=== PATIENT | male | born 1990 | race Hispanic/Latino ===

== ENCOUNTER → 2024-12-02 08:25 | Outpatient (REF) | payer OTHER, SELFPAY ==
[2024-12-02 09:24] LABS: Hematocrit 48.4 % (39.0-52.0); Hemoglobin 16.9 g/dL (13.0-18.0); Mean Corp Hgb Conc. 34.9 g/dL (33.0-37.0); Mean Corpuscular Hgb 29.6 pg (27.0-31.0); Mean Corpuscular Volume 84.8 fL (80.0-94.0); Mean Platelet Volume 12.2 fL (7.4-10.4); Platelet Count 194 10^3/uL (130-400); Red Blood Cell Count 5.71 10^6/uL (4.70-6.10); Red Cell Dist. Width 12.6 % (11.5-14.5); White Blood Cell Count 7.4 10^3/uL (4.8-10.8)
[2024-12-02 09:49] LABS: ALT (SGPT) 74 U/L (0-50); AST (SGOT) 58 U/L (17-59); Albumin 5.2 g/dl (3.5-5.0); Alkaline Phosphatase 66 U/L (38-126); Blood Urea Nitrogen 11 mg/dl (9-20); Calcium 9.7 mg/dl (8.4-10.2); Carbon Dioxide 25 mmol/L (22-30); Chloride 106 mmol/L (98-107); Glucose 107 mg/dl (70-99); HDL Cholesterol 59 mg/dl; LDL Cholesterol, Calculated 206 mg/dl; Potassium 4.9 mmol/L (3.5-5.1); Sodium 140 mmol/L (135-145); Total Bilirubin 0.9 mg/dl (0.2-1.3); Total Cholesterol 287 mg/dl (50-199); Total Protein 8.3 g/dl (6.3-8.2); Triglyceride 112 mg/dl (10-149); Very Low Density Lipoprotein 22 mg/dl (0-30); eGFR > 60.00
== END ==
LOC: REG 08:25
PROVIDERS: ATTENDING PHYSICIAN Family Medicine
DX: I10 Essential (primary) hypertension (principal)
CPT/HCPCS: 36415; 80053; 80061; 85027